=== PATIENT | female | born 2000 | race Caucasian/White ===

== ENCOUNTER 2018-10-26 11:02 | Emergency (ER) | payer OTHER ==
[~2018-10-26] VITALS: Ht 167.6 cm; Wt 79.8 kg
[2018-10-26 11:08] VITALS: BP 129/76; Ht 167.6 cm; Wt 79.8 kg
== END 2018-10-26 11:47 | disposition home or self-care (01) ==
LOC: ED 11:02
DX: L50.9 Urticaria, unspecified (principal); Z88.0 Allergy status to penicillin; Z88.1 Allergy status to other antibiotic agents
CPT/HCPCS: J7512